=== PATIENT | female | born 1950 ===

== ENCOUNTER 2021-05-29 09:15 | Inpatient (IN) | payer OTHER ==
[~2021-05-29] VITALS: Ht 165.1 cm; Wt 69.9 kg
[2021-05-29] MEDS ORDERED: ATORVAS PO (12:05)
[2021-05-29] MEDS ORDERED: METHOTREXATE2.5 MG (12:07)
[2021-05-29] MEDS ORDERED: PLAQUENIL PO (12:08)
[2021-05-29] MEDS ORDERED: CANDESAR PO (12:09)
[2021-06-02] MEDS ORDERED: ATACAND4 MG PO (08:14)
[2021-06-02] MEDS ORDERED: HYDROXYCHLOROQ200 MG (08:15)
[2021-06-02] MEDS ORDERED: ATORVASTATIN CA10 MG PO (08:16)
== END 2021-06-03 16:51 | disposition home or self-care (01) | DRG 349 ==
LOC: SURH 06-02 05:15 → O/R 06-02 05:15 → SURH 06-02 06:00
PROVIDERS: ADMIT Colon & Rectal Surgery; ATTEND Colon & Rectal Surgery
PROC: 0KXM0ZZ Transfer Perineum Muscle, Open Approach (ICD-10-PCS; 2021-06-02)
PROC: 3E0F7SF Introduction of Other Gas into Respiratory Tract, Via Natural or Artificial Opening (ICD-10-PCS; 2021-06-02)
PROC: 0DJD8ZZ Inspection of Lower Intestinal Tract, Via Natural or Artificial Opening Endoscopic (ICD-10-PCS; 2021-06-02)
PROC: 0DBP7ZZ Excision of Rectum, Via Natural or Artificial Opening (ICD-10-PCS; principal; 2021-06-02 06:00)
DX: K62.3 Rectal prolapse (principal); R15.9 Full incontinence of feces; I11.9 Hypertensive heart disease without heart failure